=== PATIENT | female | born 1940 | race African-American/Black ===

== ENCOUNTER 2019-03-25 19:06 | Inpatient (IN) | payer MEDICARE ==
[~2019-03-25] VITALS: Ht 162.6 cm; Wt 68.9 kg
[~2019-03-25 19:06] MED LIST: CLON0.2T PO; HYDR25TA MT; LISI-604 PO; METO25TA6 PO; NAPR-677 PO
[2019-03-25] MEDS ORDERED: SODIUM CHLORIDE 0.9% 1,000 ML IV ONE (21:28)
[2019-03-25 21:59] LABS: HEMATOCRIT. 46.2 % (36.0-48.0); HEMOGLOBIN. 15.4 g/dL (12.0-16.0); MEAN CORPUSCULAR VOLUME 89.9 fL (81.0-99.0); MEAN PLATELET VOLUME 7.4 fl (7.4-10.4); PLATELET 369 x1000/uL (130-400); RED BLOOD CELL COUNT 5.14 mill/uL (4.2-5.4); RED CELL DISTRIBUTION WIDTH 14.3 % (11.6-14.6)
[2019-03-25 22:05] LABS: CHLORIDE 107 mEq/L (98-107); PROTHROMBIN TIME 10.2 sec (9.6-11.0)
[2019-03-25 22:09] LABS: ETHANOL BLOOD < 10 mg/dL
[2019-03-25 22:25] LABS: PLATELET ESTIMATE NORMAL
[2019-03-25 22:36] LABS: CLARITY URINE CLOUDY (CLEAR); COLOR URINE YELLOW (YELLOW); KETONES URINE 3+ (NEGATIVE); LEUKOCYTE ESTERASE URINE NEGATIVE (NEGATIVE); NITRITE URINE NEGATIVE (NEGATIVE); OCCULT BLOOD URINE NEGATIVE (NEGATIVE); PROTEIN URINE TRACE (NEGATIVE); SPECIFIC GRAVITY URINE 1.029 (1.005-1.030); UROBILINOGEN URINE 0.2 E.U./dL (0.2-1.0)
[2019-03-25 22:52] LABS: *AMPHETAMINES SCREEN URINE NEGATIVE (NEGATIVE); *BARBITURATES SCREEN URINE NEGATIVE (NEGATIVE); *BENZODIAZEPINES SCREEN URINE NEGATIVE (NEGATIVE); *COCAINE SCREEN URINE NEGATIVE (NEGATIVE); METHADONE URINE SCREEN NEGATIVE (NEGATIVE)
[2019-03-25 22:53] LABS: CANNABINOID URINE SCREEN NEGATIVE (NEGATIVE); OPIATES URINE SCREEN NEGATIVE (NEGATIVE); PHENCYCLIDINE URINE SCREEN NEGATIVE (NEGATIVE)
[2019-03-25] MEDS ORDERED: SODIUM CHLORIDE 0.9% 1000ML BAG (SEPSIS BOLUS) IV ONE (23:00)
[2019-03-25] MEDS ORDERED: PIPERACILLIN/TAZ 3.375G PREMIX 50 ML IV ONE (23:00)
[2019-03-26] VITALS (15 sets, daily range): BP systolic 140–180; BP diastolic 75–102
[2019-03-26 00:05] LABS: BG BASE EXCESS -7.8 mmol/L (-2.0-2.0); BG CARBOXYHEMOGLOBIN 0.3 % (0.5-1.5); BG DEOXYHEMOGLOBIN 2.9 % (0.0-5.0); BG FRACTION INSPIRED OXYGEN 21; BG METHEMOGLOBIN 0.2 % (0.0-1.5); BG OXYGEN SATURATION 97.1 % (92.0-98.5); BG OXYHEMOGLOBIN 96.6 % (94.0-97.0); BG PCO2 28.7 mmHg (35.0-45.0); BG PH 7.364 (7.350-7.450); BG PO2 92.1 mmHg (75.0-100.0); BG SAMPLE SITE RIGHT BRACHIAL; BG TOTAL HEMOGLOBIN 14.7 g/dL (12.0-18.0); BG VENT MODE ROOM AIR
[2019-03-26] MEDS ORDERED: SODIUM CHLORIDE 0.45% 1,000 ML IV SCH (07:30)
[2019-03-26] MEDS ORDERED: DEXTROSE 50% WATER 50ML SYRINGE IV PRN (07:30)
[2019-03-26] MEDS: INSULIN LISPRO 100 UNITS/ML SUBCUT SCH ×4 (09:01→21:17)
[2019-03-26] MEDS: METOPROLOL TARTRATE 25MG TABLET PO SCH ×2 (09:03→20:49)
[2019-03-26] MEDS: ENOXAPARIN 40MG/0.4ML SYR SUBCUT SCH (09:04)
[2019-03-26] MEDS: CEFTRIAXONE 1 G PREMIX 50 ML IV SCH (10:24)
[2019-03-26] MEDS ORDERED: BLOOD SUGAR DIAGNOSTIC STRIP TEST SCH ×2 (11:50→16:00)
[2019-03-26] MEDS ORDERED: INSULIN GLARGINE UD 100 UNITS/ML SYR SUBCUT NR (12:00)
[2019-03-26 13:21] LABS: HEMATOCRIT 43.8 % (36.0-48.0); HEMOGLOBIN 14.4 g/dL (12.0-16.0); MEAN CORPUSCULAR HEMOGLOBIN 29.5 pg (28.0-32.0); MEAN CORPUSCULAR VOLUME 89.6 fL (81.0-99.0); PLATELET 360 x1000/uL (130-400); RED BLOOD CELL COUNT 4.89 mill/uL (4.2-5.4); RED CELL DISTRIBUTION WIDTH 14.8 % (11.6-14.6)
[2019-03-26 14:30] LABS: CHLORIDE 117 mEq/L (98-107)
[2019-03-26] MEDS ORDERED: DILTIAZEM HCL 5MG/ML 5ML VIAL IV NR (15:00)
[2019-03-26] MEDS ORDERED: ONDANSETRON HCL 4MG/2ML INJ IV PRN (15:15)
[2019-03-26] MEDS ORDERED: SIMETHICONE 80MG TABLET CHEW PO PRN (15:15)
[2019-03-26] MEDS ORDERED: DOCUSATE SODIUM 100MG CAPSULE PO PRN (15:15)
[2019-03-26] MEDS: DEXTROSE 5% WATER 1,000 ML IV SCH (15:48)
[2019-03-26] MEDS ORDERED: DILTIAZEM HCL 5MG/ML 5ML VIAL IV ONE (16:09)
[2019-03-26 16:51] LABS: BG BASE EXCESS -4.8 mmol/L (-2.0-2.0); BG CARBOXYHEMOGLOBIN 0.8 % (0.5-1.5); BG DEOXYHEMOGLOBIN 4.3 % (0.0-5.0); BG FRACTION INSPIRED OXYGEN 21; BG HCO3 ACT 18.7 mmol/L (22.0-26.0); BG METHEMOGLOBIN 0.2 % (0.0-1.5); BG OXYGEN SATURATION 95.7 % (92.0-98.5); BG OXYHEMOGLOBIN 94.7 % (94.0-97.0); BG PH 7.399 (7.350-7.450); BG PO2 78.4 mmHg (75.0-100.0); BG SAMPLE SITE RIGHT RADIAL; BG TOTAL HEMOGLOBIN 14.8 g/dL (12.0-18.0); BG VENT MODE ROOM AIR
[2019-03-26 17:08] LABS: PHOSPHORUS 2.2 mg/dL (2.5-4.9)
[2019-03-26] MEDS: HYDRALAZINE 20MG/ML VIAL IV PRN (18:25)
[2019-03-26 20:20] LABS: CHLORIDE 114 mEq/L (98-107)
[2019-03-26] MEDS: BLOOD SUGAR DIAGNOSTIC STRIP TEST SCH (20:48)
[2019-03-26] MEDS: ATORVASTATIN CALCIUM 10MG TABLET PO SCH (20:48)
[2019-03-26] MEDS: FAMOTIDINE 20MG TABLET PO SCH (20:49)
[2019-03-26] MEDS ORDERED: LACTULOSE 20G/30ML UDC PO PRN (21:00)
[2019-03-26] MEDS: DILTIAZEM HCL 5MG/ML 5ML VIAL IV PRN (22:07)
[2019-03-27] VITALS (17 sets, daily range): BP systolic 111–188; BP diastolic 61–104
[2019-03-27] MEDS: DEXTROSE 5% WATER 1,000 ML IV SCH ×3 (00:23→15:00)
[2019-03-27] MEDS: BLOOD SUGAR DIAGNOSTIC STRIP TEST SCH ×6 (00:26→20:16)
[2019-03-27] MEDS: INSULIN LISPRO 100 UNITS/ML SUBCUT SCH ×6 (00:32→20:43)
[2019-03-27] MEDS: HYDRALAZINE 20MG/ML VIAL IV PRN ×2 (05:22→22:25)
[2019-03-27 05:57] LABS: HEMATOCRIT. 43.2 % (36.0-48.0); HEMOGLOBIN. 14.5 g/dL (12.0-16.0); MEAN CORPUSCULAR VOLUME 89.5 fL (81.0-99.0); MEAN PLATELET VOLUME 7.6 fl (7.4-10.4); PLATELET 321 x1000/uL (130-400); RED BLOOD CELL COUNT 4.82 mill/uL (4.2-5.4); RED CELL DISTRIBUTION WIDTH 14.8 % (11.6-14.6)
[2019-03-27] MEDS: METOPROLOL TARTRATE 25MG TABLET PO SCH (09:00)
[2019-03-27] MEDS: ENOXAPARIN 40MG/0.4ML SYR SUBCUT SCH (09:11)
[2019-03-27] MEDS ORDERED: INSULIN GLARGINE UD 100 UNITS/ML SYR SUBCUT SCH ×2 (10:00→22:00)
[2019-03-27] MEDS: CEFTRIAXONE 1 G PREMIX 50 ML IV SCH (10:36)
[2019-03-27] MEDS ORDERED: INSULIN LISPRO 100 UNITS/ML SUBCUT NR (11:15)
[2019-03-27 11:21] LABS: PLATELET ESTIMATE NORMAL
[2019-03-27 13:37] LABS: CHLORIDE 109 mEq/L (98-107)
[2019-03-27] MEDS: DILTIAZEM HCL 5MG/ML 5ML VIAL IV PRN (16:24)
[2019-03-27] MEDS ORDERED: POTASSIUM CHLORIDE INJ 40 MEQ in DEXT 5% WATER 250 ML IV NR (16:30)
[2019-03-27 19:51] LABS: BG BASE EXCESS -1.5 mmol/L (-2.0-2.0); BG CARBOXYHEMOGLOBIN 0.9 % (0.5-1.5); BG DEOXYHEMOGLOBIN 5.1 % (0.0-5.0); BG FRACTION INSPIRED OXYGEN 21; BG HCO3 ACT 21.9 mmol/L (22.0-26.0); BG METHEMOGLOBIN 0.3 % (0.0-1.5); BG OXYGEN SATURATION 94.8 % (92.0-98.5); BG OXYHEMOGLOBIN 93.7 % (94.0-97.0); BG PCO2 33.3 mmHg (35.0-45.0); BG PH 7.435 (7.350-7.450); BG PO2 72.7 mmHg (75.0-100.0); BG SAMPLE SITE RIGHT BRACHIAL; BG TOTAL HEMOGLOBIN 15.4 g/dL (12.0-18.0); BG VENT MODE ROOM AIR
[2019-03-27] MEDS: ATORVASTATIN CALCIUM 10MG TABLET PO SCH (20:25)
[2019-03-27] MEDS: METOPROLOL TARTRATE 50MG TABLET PO SCH (20:26)
[2019-03-27] MEDS: FAMOTIDINE 20MG TABLET PO SCH (20:26)
[2019-03-28] VITALS (18 sets, daily range): BP systolic 130–180; BP diastolic 62–124
[2019-03-28] MEDS: BLOOD SUGAR DIAGNOSTIC STRIP TEST SCH ×7 (00:57→23:31)
[2019-03-28] MEDS: INSULIN LISPRO 100 UNITS/ML SUBCUT SCH ×7 (01:00→23:31)
[2019-03-28] MEDS: HYDRALAZINE 20MG/ML VIAL IV PRN ×2 (04:49→18:05)
[2019-03-28 06:06] LABS: HEMATOCRIT. 43.7 % (36.0-48.0); HEMOGLOBIN. 14.7 g/dL (12.0-16.0); MEAN CORPUSCULAR HEMOGLOBIN 29.9 pg (28.0-32.0); MEAN CORPUSCULAR VOLUME 88.9 fL (81.0-99.0); MEAN PLATELET VOLUME 7.9 fl (7.4-10.4); PLATELET 307 x1000/uL (130-400); RED BLOOD CELL COUNT 4.91 mill/uL (4.2-5.4); RED CELL DISTRIBUTION WIDTH 14.5 % (11.6-14.6)
[2019-03-28 06:19] LABS: CHLORIDE 108 mEq/L (98-107)
[2019-03-28] MEDS: DEXTROSE 5% WATER 1,000 ML IV SCH (07:22)
[2019-03-28 07:48] LABS: CLARITY URINE CLOUDY (CLEAR); COLOR URINE YELLOW (YELLOW); KETONES URINE TRACE (NEGATIVE); LEUKOCYTE ESTERASE URINE NEGATIVE (NEGATIVE); NITRITE URINE NEGATIVE (NEGATIVE); OCCULT BLOOD URINE TRACE (NEGATIVE); PROTEIN URINE TRACE (NEGATIVE); SPECIFIC GRAVITY URINE 1.024 (1.005-1.030); UROBILINOGEN URINE 0.2 E.U./dL (0.2-1.0)
[2019-03-28] MEDS: ENOXAPARIN 40MG/0.4ML SYR SUBCUT SCH (09:00)
[2019-03-28] MEDS: METOPROLOL TARTRATE 50MG TABLET PO SCH ×2 (09:00→20:51)
[2019-03-28] MEDS: CEFTRIAXONE 1 G PREMIX 50 ML IV SCH (10:13)
[2019-03-28] MEDS: DILTIAZEM HCL 5MG/ML 5ML VIAL IV PRN (10:54)
[2019-03-28] MEDS: DILTIAZEM HCL 30MG TABLET PO SCH ×3 (12:00→23:14)
[2019-03-28] MEDS ORDERED: INSULIN GLARGINE UD 100 UNITS/ML SYR SUBCUT NR (12:30)
[2019-03-28 13:25] LABS: PLATELET ESTIMATE NORMAL
[2019-03-28] MEDS ORDERED: LIDOCAINE HCL 1% 20ML VIAL (Pyxis) INJ ONE (13:50)
[2019-03-28] MEDS ORDERED: SODIUM BICARBONATE 4% (2.4MEQ) 5ML VIAL IV ONE (13:50)
[2019-03-28] MEDS: SODIUM CHLORIDE 0.45% 1,000 ML IV SCH (14:15)
[2019-03-28] MEDS: HYDROCODONE/ACETAMINOPHEN 5/325MG TABLET PO PRN (20:37)
[2019-03-28] MEDS: DIPHENHYDRAMINE 50MG/ML VIAL IV PRN (20:50)
[2019-03-28] MEDS: ATORVASTATIN CALCIUM 10MG TABLET PO SCH (20:50)
[2019-03-28] MEDS: FAMOTIDINE 20MG TABLET PO SCH (20:51)
[2019-03-28] MEDS: INSULIN GLARGINE UD 100 UNITS/ML SYR SUBCUT SCH (21:08)
[2019-03-29] VITALS (12 sets, daily range): BP systolic 140–181; BP diastolic 78–118
[2019-03-29] MEDS: BLOOD SUGAR DIAGNOSTIC STRIP TEST SCH ×6 (04:00→23:01)
[2019-03-29] MEDS: SODIUM CHLORIDE 0.45% 1,000 ML IV SCH ×2 (04:09→11:27)
[2019-03-29] MEDS: INSULIN LISPRO 100 UNITS/ML SUBCUT SCH ×6 (04:10→23:01)
[2019-03-29] MEDS: DILTIAZEM HCL 30MG TABLET PO SCH ×4 (05:15→23:01)
[2019-03-29 06:31] LABS: BASOPHILS % 0.2 % (0.0-2.0); EOSINOPHILS % 0.2 % (0.0-5.0); HEMATOCRIT. 45.9 % (36.0-48.0); HEMOGLOBIN. 15.3 g/dL (12.0-16.0); LYMPHOCYTES % 8.9 % (20.0-50.0); MEAN CORPUSCULAR HEMOGLOBIN 29.7 pg (28.0-32.0); MEAN CORPUSCULAR VOLUME 88.9 fL (81.0-99.0); MEAN PLATELET VOLUME 8.6 fl (7.4-10.4); MONOCYTES % 6.3 % (2.0-8.0); NEUTROPHILS % 84.4 % (40.0-76.0); PLATELET 277 x1000/uL (130-400); RED BLOOD CELL COUNT 5.16 mill/uL (4.2-5.4); RED CELL DISTRIBUTION WIDTH 14.6 % (11.6-14.6)
[2019-03-29 07:50] LABS: CHLORIDE 105 mEq/L (98-107)
[2019-03-29] MEDS: CEFTRIAXONE 1 G PREMIX 50 ML IV SCH (09:33)
[2019-03-29] MEDS: METOPROLOL TARTRATE 50MG TABLET PO SCH ×2 (09:34→20:16)
[2019-03-29] MEDS: INSULIN GLARGINE UD 100 UNITS/ML SYR SUBCUT SCH ×2 (09:35→22:00)
[2019-03-29 10:06] LABS: A/G RATIO 0.9 (0.7-1.7); ALBUMIN 3.2 g/dL (2.9-4.4); ALPHA-1-GLOBULIN 0.3 g/dL (0.0-0.4); ALPHA-2-GLOBULIN 0.9 g/dL (0.4-1.0); BETA GLOBULIN 1.3 g/dL (0.7-1.3); GAMMA GLOBULINS 0.9 g/dL (0.4-1.8); GLOBULIN TOTAL 3.4 g/dL (2.2-3.9); M-SPIKE Not Observed g/dL (Not Observed); TOTAL PROTEIN SERUM 6.6 g/dL (6.0-8.5)
[2019-03-29] MEDS ORDERED: PAMIDRONATE DISODIUM 30 MG in SODIUM CHLORIDE 0.9% 500 ML IV SCH (11:00)
[2019-03-29 13:11] LABS: ALBUMIN URINE 43.6 % (.); ALPHA-1-GLOBULIN URINE 3.7 % (.); ALPHA-2-GLOBULIN URINE 13.5 % (.); BETA GLOBULIN URINE 15.9 % (.); GAMMA GLOBULIN URINE 23.3 % (.); TOTAL PROTEIN RANDOM URINE 25.3 mg/dL (Not Estab.)
[2019-03-29] MEDS: FAMOTIDINE 20MG TABLET PO SCH (20:15)
[2019-03-29] MEDS: ATORVASTATIN CALCIUM 10MG TABLET PO SCH (20:15)
[2019-03-29] MEDS: DIPHENHYDRAMINE 50MG/ML VIAL IV PRN (22:29)
[2019-03-30] VITALS (11 sets, daily range): BP systolic 106–173; BP diastolic 36–104
[2019-03-30] MEDS: SODIUM CHLORIDE 0.45% 1,000 ML IV SCH ×4 (01:49→20:40)
[2019-03-30] MEDS: CLONIDINE 0.1MG TABLET PO PRN ×2 (01:57→01:59)
[2019-03-30] MEDS: ACETAMINOPHEN 325MG TABLET PO PRN (01:57)
[2019-03-30] MEDS: INSULIN LISPRO 100 UNITS/ML SUBCUT SCH ×5 (04:00→20:00)
[2019-03-30] MEDS: BLOOD SUGAR DIAGNOSTIC STRIP TEST SCH ×5 (04:51→20:00)
[2019-03-30] MEDS: DIPHENHYDRAMINE 50MG/ML VIAL IV PRN ×2 (05:17→20:39)
[2019-03-30] MEDS: DILTIAZEM HCL 30MG TABLET PO SCH ×4 (05:50→23:02)
[2019-03-30 07:19] LABS: HEMATOCRIT 40.8 % (36.0-48.0); HEMOGLOBIN 13.8 g/dL (12.0-16.0); MEAN CORPUSCULAR VOLUME 88.9 fL (81.0-99.0); PLATELET 250 x1000/uL (130-400); RED CELL DISTRIBUTION WIDTH 14.2 % (11.6-14.6)
[2019-03-30 07:27] LABS: CHLORIDE 106 mEq/L (98-107)
[2019-03-30] MEDS: METOPROLOL TARTRATE 50MG TABLET PO SCH ×2 (08:37→20:40)
[2019-03-30] MEDS: ENOXAPARIN 40MG/0.4ML SYR SUBCUT SCH (10:07)
[2019-03-30] MEDS: INSULIN GLARGINE UD 100 UNITS/ML SYR SUBCUT SCH ×2 (10:07→21:28)
[2019-03-30] MEDS: CEFTRIAXONE 1 G PREMIX 50 ML IV SCH (10:07)
[2019-03-30 18:38] LABS: T4 FREE 1.15 ng/dL (0.76-1.46)
[2019-03-30 19:08] LABS: FOLIC ACID (FOLATE) SERUM 19.5 ng/mL (>5.38)
[2019-03-30] MEDS: ATORVASTATIN CALCIUM 10MG TABLET PO SCH (20:39)
[2019-03-30] MEDS: FAMOTIDINE 20MG TABLET PO SCH (20:40)
[2019-03-30] MEDS: HYDROCODONE/ACETAMINOPHEN 5/325MG TABLET PO PRN (22:32)
[2019-03-31] VITALS (12 sets, daily range): BP systolic 121–173; BP diastolic 77–126
[2019-03-31] MEDS: BLOOD SUGAR DIAGNOSTIC STRIP TEST SCH ×6 (04:00→20:00)
[2019-03-31] MEDS: INSULIN LISPRO 100 UNITS/ML SUBCUT SCH ×6 (04:00→20:00)
[2019-03-31] MEDS: DILTIAZEM HCL 30MG TABLET PO SCH ×3 (05:46→17:35)
[2019-03-31 07:18] LABS: HEMATOCRIT 40.7 % (36.0-48.0); HEMOGLOBIN 13.8 g/dL (12.0-16.0); MEAN CORPUSCULAR VOLUME 88.9 fL (81.0-99.0); PLATELET 269 x1000/uL (130-400); RED BLOOD CELL COUNT 4.58 mill/uL (4.2-5.4)
[2019-03-31 07:30] LABS: CHLORIDE 105 mEq/L (98-107)
[2019-03-31] MEDS: ZINC SULFATE 220 MG ( 50 ) CAPSULE NG SCH (08:50)
[2019-03-31] MEDS: ASCORBIC ACID 250 MG TABLET NG SCH (08:51)
[2019-03-31] MEDS: METOPROLOL TARTRATE 50MG TABLET PO SCH ×2 (08:51→21:23)
[2019-03-31] MEDS: ENOXAPARIN 40MG/0.4ML SYR SUBCUT SCH (08:52)
[2019-03-31] MEDS: DIPHENHYDRAMINE 50MG/ML VIAL IV PRN (08:53)
[2019-03-31] MEDS: CEFTRIAXONE 1 G PREMIX 50 ML IV SCH (09:49)
[2019-03-31] MEDS: INSULIN GLARGINE UD 100 UNITS/ML SYR SUBCUT SCH ×2 (09:52→22:02)
[2019-03-31] MEDS ORDERED: POTASSIUM CHLORIDE 20MEQ TABLET SR PO SCH (11:30)
[2019-03-31] MEDS: AMLODIPINE 5MG TABLET PO SCH (12:00)
[2019-03-31] MEDS ORDERED: POLYETHYLENE GLYCOL 3350 (17GM) 1 DOSE PACK PO PRN (15:00)
[2019-03-31] MEDS: ACETAMINOPHEN 325MG TABLET PO PRN (16:48)
[2019-03-31] MEDS: FAMOTIDINE 20MG TABLET PO SCH (21:23)
[2019-03-31] MEDS: ATORVASTATIN CALCIUM 10MG TABLET PO SCH (21:23)
[2019-03-31] MEDS: SODIUM CHLORIDE 0.45% 1,000 ML IV SCH ×2 (22:29→22:30)
[2019-04-01] VITALS (21 sets, daily range): BP systolic 108–169; BP diastolic 62–86
[2019-04-01] MEDS: DILTIAZEM HCL 30MG TABLET PO SCH ×5 (00:54→23:26)
[2019-04-01] MEDS: BLOOD SUGAR DIAGNOSTIC STRIP TEST SCH ×5 (04:00→21:28)
[2019-04-01] MEDS: HYDRALAZINE 20MG/ML VIAL IV PRN (04:15)
[2019-04-01] MEDS: INSULIN LISPRO 100 UNITS/ML SUBCUT SCH ×4 (04:24→21:28)
[2019-04-01] MEDS: SODIUM CHLORIDE 0.45% 1,000 ML IV SCH ×2 (07:08→19:18)
[2019-04-01 07:16] LABS: BASOPHILS % 0.2 % (0.0-2.0); EOSINOPHILS % 0.4 % (0.0-5.0); HEMATOCRIT. 39.6 % (36.0-48.0); HEMOGLOBIN. 13.2 g/dL (12.0-16.0); LYMPHOCYTES % 7.6 % (20.0-50.0); MEAN CORPUSCULAR HEMOGLOBIN 29.7 pg (28.0-32.0); MEAN CORPUSCULAR VOLUME 89.2 fL (81.0-99.0); MEAN PLATELET VOLUME 8.8 fl (7.4-10.4); MONOCYTES % 6.2 % (2.0-8.0); NEUTROPHILS % 85.6 % (40.0-76.0); PLATELET 263 x1000/uL (130-400); RED BLOOD CELL COUNT 4.44 mill/uL (4.2-5.4); RED CELL DISTRIBUTION WIDTH 13.9 % (11.6-14.6)
[2019-04-01 07:34] LABS: CHLORIDE 106 mEq/L (98-107)
[2019-04-01] MEDS: ENOXAPARIN 40MG/0.4ML SYR SUBCUT SCH (11:22)
[2019-04-01] MEDS: CEFTRIAXONE 1 G PREMIX 50 ML IV SCH (11:22)
[2019-04-01] MEDS: AMLODIPINE 5MG TABLET PO SCH (11:23)
[2019-04-01] MEDS: ASCORBIC ACID 250 MG TABLET NG SCH (11:23)
[2019-04-01] MEDS: METOPROLOL TARTRATE 50MG TABLET PO SCH ×2 (11:24→20:32)
[2019-04-01] MEDS: INSULIN GLARGINE UD 100 UNITS/ML SYR SUBCUT SCH (12:04)
[2019-04-01] MEDS: ZINC SULFATE 220 MG ( 50 ) CAPSULE NG SCH (12:04)
[2019-04-01] MEDS: ATORVASTATIN CALCIUM 10MG TABLET PO SCH (20:30)
[2019-04-01] MEDS: DIPHENHYDRAMINE 50MG/ML VIAL IV PRN (20:30)
[2019-04-01] MEDS: FAMOTIDINE 20MG TABLET PO SCH (20:31)
[2019-04-02] VITALS (13 sets, daily range): BP systolic 105–148; BP diastolic 28–84
[2019-04-02] MEDS: INSULIN LISPRO 100 UNITS/ML SUBCUT SCH ×4 (04:00→21:21)
[2019-04-02] MEDS: BLOOD SUGAR DIAGNOSTIC STRIP TEST SCH ×4 (04:00→21:22)
[2019-04-02] MEDS: SODIUM CHLORIDE 0.45% 1,000 ML IV SCH ×2 (04:46→14:15)
[2019-04-02] MEDS: DILTIAZEM HCL 30MG TABLET PO SCH ×4 (05:47→23:34)
[2019-04-02 07:12] LABS: HEMATOCRIT 34.8 % (36.0-48.0); HEMOGLOBIN 11.9 g/dL (12.0-16.0); MEAN CORPUSCULAR HEMOGLOBIN 30.2 pg (28.0-32.0); MEAN CORPUSCULAR VOLUME 88.5 fL (81.0-99.0); PLATELET 304 x1000/uL (130-400); RED BLOOD CELL COUNT 3.94 mill/uL (4.2-5.4); RED CELL DISTRIBUTION WIDTH 13.9 % (11.6-14.6)
[2019-04-02 07:30] LABS: CHLORIDE 105 mEq/L (98-107)
[2019-04-02] MEDS: ASCORBIC ACID 250 MG TABLET NG SCH (09:04)
[2019-04-02] MEDS: ZINC SULFATE 220 MG ( 50 ) CAPSULE NG SCH (09:04)
[2019-04-02] MEDS: METOPROLOL TARTRATE 50MG TABLET PO SCH ×2 (09:05→20:19)
[2019-04-02] MEDS: AMLODIPINE 5MG TABLET PO SCH (09:05)
[2019-04-02] MEDS: ENOXAPARIN 40MG/0.4ML SYR SUBCUT SCH (09:06)
[2019-04-02] MEDS: CEFTRIAXONE 1 G PREMIX 50 ML IV SCH (09:46)
[2019-04-02] MEDS ORDERED: INSULIN GLARGINE UD 100 UNITS/ML SYR SUBCUT SCH (10:00)
[2019-04-02] MEDS ORDERED: POTASSIUM CHLORIDE INJ 40 MEQ in DEXT 5% WATER 230 ML IV NR (12:30)
[2019-04-02] MEDS ORDERED: POTASSIUM CHLORIDE 20MEQ TABLET SR PO NR (18:00)
[2019-04-02] MEDS: ATORVASTATIN CALCIUM 10MG TABLET PO SCH (20:18)
[2019-04-02] MEDS: FAMOTIDINE 20MG TABLET PO SCH (20:18)
[2019-04-02] MEDS: INSULIN GLARGINE UD 100 UNITS/ML SYR SUBCUT SCH (21:36)
[2019-04-03] VITALS: BP 139/73
[2019-04-03 04:00] VITALS: BP 139/86
[2019-04-03] MEDS: BLOOD SUGAR DIAGNOSTIC STRIP TEST SCH ×2 (04:29→10:43)
[2019-04-03] MEDS: INSULIN LISPRO 100 UNITS/ML SUBCUT SCH ×2 (04:45→13:13)
[2019-04-03] MEDS: DILTIAZEM HCL 30MG TABLET PO SCH ×2 (05:04→13:13)
[2019-04-03 08:00] VITALS: BP 126/63
[2019-04-03] MEDS: ZINC SULFATE 220 MG ( 50 ) CAPSULE NG SCH (08:47)
[2019-04-03] MEDS: METOPROLOL TARTRATE 50MG TABLET PO SCH (08:47)
[2019-04-03] MEDS: AMLODIPINE 5MG TABLET PO SCH (08:47)
[2019-04-03] MEDS: ENOXAPARIN 40MG/0.4ML SYR SUBCUT SCH (08:47)
[2019-04-03] MEDS: ASCORBIC ACID 250 MG TABLET NG SCH (08:47)
[2019-04-03] MEDS: INSULIN GLARGINE UD 100 UNITS/ML SYR SUBCUT SCH (11:02)
[2019-04-03 12:00] VITALS: BP 148/83
[2019-04-03 13:38] VITALS: BP 148/83
== END 2019-04-03 14:34 | disposition home health service (06) | DRG 871 ==
LOC: ER 19:06 → 3WST 23:40 → EDBEDREQSVC 23:43 → EDBEDREQ 23:43 → EDBEDREQTM 23:43 → ENRESERV 03-26 03:44 → 3WST 03-26 06:55 → 6WST 04-02 22:15
PROVIDERS: ADMIT Internal Medicine; ATTEND Internal Medicine
PROC: 0GBG3ZX Excision of Left Thyroid Gland Lobe, Percutaneous Approach, Diagnostic (ICD-10-PCS; 2019-03-28)
PROC: 4A00X4Z Measurement of Central Nervous Electrical Activity, External Approach (ICD-10-PCS; principal; 2019-04-02)
DX: A41.9 Sepsis, unspecified organism (principal); E11.10 Type 2 diabetes mellitus with ketoacidosis without coma; G92 Toxic encephalopathy; I50.33 Acute on chronic diastolic (congestive) heart failure; N39.0 Urinary tract infection, site not specified; D68.59 Other primary thrombophilia; E87.2 Acidosis; N17.9 Acute kidney failure, unspecified; E46 Unspecified protein-calorie malnutrition; E86.0 Dehydration; E83.52 Hypercalcemia; E03.9 Hypothyroidism, unspecified; I11.0 Hypertensive heart disease with heart failure; R00.0 Tachycardia, unspecified; E07.9 Disorder of thyroid, unspecified; E21.3 Hyperparathyroidism, unspecified; E04.9 Nontoxic goiter, unspecified; K59.00 Constipation, unspecified; Z79.84 Long term (current) use of oral hypoglycemic drugs; Z79.899 Other long term (current) drug therapy; Z68.26 Body mass index [BMI] 26.0-26.9, adult
CPT/HCPCS: 10005; 36415; 36600; 70551; 71045; 72170; 73552; 74176; 76536; 80048; 80305; 80320; 81003; 82010; 82140; 82306; 82330; 82375; 82607; 82652; 82746; 82805; 82962; 83036; 83605; 83735; 83880; 83970; 84100; 84145; 84155; 84156; 84165; 84166; 84439; 84443; 84481; 84484; 85027; 85379; 88172; 88173; 92610; 93005; 97110; 97163; 97530; 99291; C1893; J0360; J0696; J1200; J1650; J1815; J2405; J2430; J2543; J3480; J3490; J7030; J7040; J7042; J7060; J7070; A4315; G0480

== ENCOUNTER 2019-07-04 08:08 | Inpatient (IN) | payer MEDICARE, MEDICAID ==
[~2019-07-04] VITALS: Ht 160 cm; Wt 64.9 kg
[2019-07-04 08:43] LABS: BASOPHILS % 0.7 % (0.0-2.0); EOSINOPHILS % 2.7 % (0.0-5.0); HEMATOCRIT. 38.7 % (36.0-48.0); HEMOGLOBIN. 13.3 g/dL (12.0-16.0); LYMPHOCYTES % 35.8 % (20.0-50.0); MEAN CORPUSCULAR HEMOGLOBIN 30.5 pg (28.0-32.0); MEAN PLATELET VOLUME 8.1 fl (7.4-10.4); MONOCYTES % 7.1 % (2.0-8.0); NEUTROPHILS % 53.7 % (40.0-76.0); PLATELET 324 x1000/uL (130-400); RED BLOOD CELL COUNT 4.35 mill/uL (4.2-5.4); RED CELL DISTRIBUTION WIDTH 14.4 % (11.6-14.6)
[2019-07-04 08:51] LABS: PROTHROMBIN TIME 10.4 sec (9.6-11.0)
[2019-07-04 08:55] LABS: CHLORIDE 111 mEq/L (98-107)
[2019-07-04 08:58] LABS: ETHANOL BLOOD < 10 mg/dL
[2019-07-04 09:01] LABS: CLARITY URINE TURBID (CLEAR); COLOR URINE DK YELLOW (YELLOW); KETONES URINE TRACE (NEGATIVE); LEUKOCYTE ESTERASE URINE 3+ (NEGATIVE); NITRITE URINE NEGATIVE (NEGATIVE); OCCULT BLOOD URINE 1+ (NEGATIVE); PROTEIN URINE 1+ (NEGATIVE); SPECIFIC GRAVITY URINE 1.027 (1.005-1.030)
[2019-07-04 09:03] LABS: LDL CHOLESTEROL 137 mg/dL (5-100)
[2019-07-04 09:13] LABS: *AMPHETAMINES SCREEN URINE NEGATIVE (NEGATIVE); *BARBITURATES SCREEN URINE NEGATIVE (NEGATIVE)
[2019-07-04 09:14] LABS: *BENZODIAZEPINES SCREEN URINE NEGATIVE (NEGATIVE); *COCAINE SCREEN URINE NEGATIVE (NEGATIVE); METHADONE URINE SCREEN NEGATIVE (NEGATIVE); OPIATES URINE SCREEN NEGATIVE (NEGATIVE)
[2019-07-04 09:15] LABS: CANNABINOID URINE SCREEN NEGATIVE (NEGATIVE); PHENCYCLIDINE URINE SCREEN NEGATIVE (NEGATIVE)
[2019-07-04] MEDS ORDERED: CEFTRIAXONE 1 G PREMIX 50 ML IV ONE (10:15)
[2019-07-04] MEDS ORDERED: SODIUM CHLORIDE 0.9% 1000ML BAG (SEPSIS BOLUS) IV ONE (10:45)
[2019-07-04] MEDS: SODIUM CHLORIDE 0.45% 1,000 ML IV SCH (12:15)
[2019-07-04] MEDS ORDERED: DIPHENHYDRAMINE 50MG/ML VIAL IV PRN (12:15)
[2019-07-04] MEDS ORDERED: HYDROCODONE/ACETAMINOPHEN 5/325MG TABLET PO PRN (12:15)
[2019-07-04] MEDS ORDERED: ACETAMINOPHEN 325MG TABLET PO PRN (12:15)
[2019-07-04] MEDS ORDERED: MAGNESIUM/ALUMINUM HYDROXIDE/SIMETHICONE 30ML UDC PO PRN (12:15)
[2019-07-04] MEDS ORDERED: LEVOFLOXACIN 500MG PREMIX 100 ML IV SCH ×2 (12:15→12:30)
[2019-07-04] MEDS ORDERED: GUAIFENESIN 200MG/10ML SUGAR FREE UDC PO PRN (12:15)
[2019-07-04] MEDS ORDERED: ACETAMINOPHEN 650MG SUPP PR PRN (12:15)
[2019-07-04] MEDS ORDERED: LORAZEPAM 0.5MG TABLET PO PRN (12:15)
[2019-07-04] MEDS ORDERED: IPRATROPIUM/ALBUTEROL 0.5-3(2.5)MG/3ML NEB NEB PRN (12:15)
[2019-07-04] MEDS ORDERED: DOCUSATE SODIUM 100MG CAPSULE PO PRN (12:15)
[2019-07-04] MEDS ORDERED: ONDANSETRON HCL 4MG/2ML INJ IV PRN (12:15)
[2019-07-04] MEDS: BLOOD SUGAR DIAGNOSTIC STRIP TEST SCH ×2 (13:00→17:20)
[2019-07-04] MEDS: INSULIN LISPRO 100 UNITS/ML SUBCUT SCH ×2 (13:20→18:20)
[2019-07-04] MEDS ORDERED: DILTIAZEM HCL 30MG TABLET PO SCH (18:00)
[2019-07-04] MEDS ORDERED: NA PHOS,M-B/NA PHOS,DI-BA ENEMA 118ML PR PRN (21:00)
[2019-07-04] MEDS: CLONIDINE 0.1MG TABLET PO PRN (22:20)
[2019-07-05] VITALS (7 sets, daily range): BP systolic 137–159; BP diastolic 83–97
[2019-07-05 00:13] LABS: CREATINE KINASE 42 IU/L (26-192)
[2019-07-05] MEDS ORDERED: DEXTROSE 50% WATER 50ML SYRINGE IV PRN (00:52)
[2019-07-05] MEDS ORDERED: ATOR10TA69 MT (01:43)
[2019-07-05] MEDS ORDERED: AMLO5TAB88 MT (01:43)
[2019-07-05] MEDS ORDERED: LEVO50TA8 MT (01:43)
[2019-07-05] MEDS ORDERED: DILT30TA3 MT (01:43)
[2019-07-05] MEDS ORDERED: INSU100C6 SQ (01:43)
[2019-07-05] MEDS ORDERED: INSU100I28 SQ (01:43)
[2019-07-05] MEDS: SODIUM CHLORIDE 0.45% 1,000 ML IV SCH ×2 (03:13→08:36)
[2019-07-05] MEDS ORDERED: INFLUENZA VIRUS VACCINE(AFLURIA) 0.5ML SYR IM ONE (06:00)
[2019-07-05] MEDS: DILTIAZEM HCL 30MG TABLET PO SCH ×3 (06:00→18:00)
[2019-07-05] MEDS: BLOOD SUGAR DIAGNOSTIC STRIP TEST SCH ×4 (06:20→21:00)
[2019-07-05] MEDS: INSULIN LISPRO 100 UNITS/ML SUBCUT SCH ×4 (06:22→21:00)
[2019-07-05 06:58] LABS: BASOPHILS % 0.5 % (0.0-2.0); EOSINOPHILS % 1.7 % (0.0-5.0); HEMATOCRIT. 35.4 % (36.0-48.0); LYMPHOCYTES % 13.8 % (20.0-50.0); MEAN CORPUSCULAR HEMOGLOBIN 29.8 pg (28.0-32.0); MEAN CORPUSCULAR VOLUME 87.8 fL (81.0-99.0); MEAN PLATELET VOLUME 8.2 fl (7.4-10.4); MONOCYTES % 5.1 % (2.0-8.0); NEUTROPHILS % 78.9 % (40.0-76.0); PLATELET 288 x1000/uL (130-400); RED BLOOD CELL COUNT 4.03 mill/uL (4.2-5.4); RED CELL DISTRIBUTION WIDTH 14.3 % (11.6-14.6)
[2019-07-05 07:11] LABS: CHLORIDE 112 mEq/L (98-107)
[2019-07-05 07:18] LABS: LDL CHOLESTEROL 125 mg/dL (5-100)
[2019-07-05 07:20] LABS: HDL CHOLESTEROL 48 mg/dL (40-59); T4 FREE 1.05 ng/dL (0.76-1.46)
[2019-07-05] MEDS: ENOXAPARIN 40MG/0.4ML SYR SUBCUT SCH (08:36)
[2019-07-05 08:51] LABS: BG BASE EXCESS -0.9 mmol/L (-2.0-2.0); BG CARBOXYHEMOGLOBIN 0.1 % (0.5-1.5); BG DEOXYHEMOGLOBIN 4.3 % (0.0-5.0); BG FRACTION INSPIRED OXYGEN 21; BG HCO3 ACT 22.1 mmol/L (22.0-26.0); BG METHEMOGLOBIN 0.3 % (0.0-1.5); BG OXYGEN SATURATION 95.7 % (92.0-98.5); BG OXYHEMOGLOBIN 95.3 % (94.0-97.0); BG PCO2 31.7 mmHg (35.0-45.0); BG PH 7.462 (7.350-7.450); BG PO2 80.4 mmHg (75.0-100.0); BG SAMPLE SITE RIGHT RADIAL; BG VENT MODE ROOM AIR
[2019-07-05] MEDS: LEVOFLOXACIN 250MG PREMIX 50 ML IV SCH (12:59)
[2019-07-05] MEDS: ASPIRIN 81MG TABLET PO SCH (17:00)
[2019-07-05] MEDS: ATORVASTATIN CALCIUM 10MG TABLET PO SCH (21:00)
[2019-07-06] VITALS: BP 155/94
[2019-07-06 04:00] VITALS: BP 162/85
[2019-07-06] MEDS: SODIUM CHLORIDE 0.45% 1,000 ML IV SCH (04:11)
[2019-07-06] MEDS: DILTIAZEM HCL 30MG TABLET PO SCH ×5 (05:18→19:02)
[2019-07-06] MEDS: BLOOD SUGAR DIAGNOSTIC STRIP TEST SCH ×4 (05:33→21:03)
[2019-07-06] MEDS: INSULIN LISPRO 100 UNITS/ML SUBCUT SCH ×4 (05:33→21:00)
[2019-07-06] MEDS: ASPIRIN 81MG TABLET PO SCH ×3 (09:00→09:30)
[2019-07-06] MEDS: CLONIDINE 0.1MG TABLET PO PRN (09:26)
[2019-07-06] MEDS: ENOXAPARIN 40MG/0.4ML SYR SUBCUT SCH (09:29)
[2019-07-06 12:19] VITALS: BP 161/97
[2019-07-06] MEDS: DILTIAZEM HCL 5MG/ML 5ML VIAL IV PRN ×2 (12:27→12:46)
[2019-07-06] MEDS: LEVOFLOXACIN 250MG PREMIX 50 ML IV SCH (12:42)
[2019-07-06 16:00] VITALS: BP 165/94
[2019-07-06 20:00] VITALS: BP 168/95
[2019-07-06] MEDS ORDERED: DILTIAZEM HCL 5MG/ML 5ML VIAL IV NR (20:00)
[2019-07-06] MEDS ORDERED: DEXT 5%/0.45% NACL 1000ML 1,000 ML IV ONE (20:45)
[2019-07-06] MEDS: ATORVASTATIN CALCIUM 10MG TABLET PO SCH (21:06)
[2019-07-07] VITALS (7 sets, daily range): BP systolic 140–177; BP diastolic 72–96
[2019-07-07] MEDS: DILTIAZEM HCL 30MG TABLET PO SCH ×6 (00:05→19:22)
[2019-07-07] MEDS: SODIUM CHLORIDE 0.45% 1,000 ML IV SCH ×2 (01:22→21:39)
[2019-07-07] MEDS: HYDRALAZINE 20MG/ML VIAL IV PRN ×2 (04:29→21:40)
[2019-07-07] MEDS: BLOOD SUGAR DIAGNOSTIC STRIP TEST SCH ×4 (06:09→20:22)
[2019-07-07] MEDS: INSULIN LISPRO 100 UNITS/ML SUBCUT SCH ×4 (06:09→20:22)
[2019-07-07] MEDS: ENOXAPARIN 40MG/0.4ML SYR SUBCUT SCH (10:01)
[2019-07-07] MEDS: LEVOFLOXACIN 250MG PREMIX 50 ML IV SCH (13:20)
[2019-07-07 16:41] LABS: HEMATOCRIT 36.4 % (36.0-48.0); HEMOGLOBIN 12.5 g/dL (12.0-16.0); MEAN CORPUSCULAR HEMOGLOBIN 30.1 pg (28.0-32.0); MEAN CORPUSCULAR VOLUME 87.5 fL (81.0-99.0); PLATELET 233 x1000/uL (130-400); RED BLOOD CELL COUNT 4.16 mill/uL (4.2-5.4); RED CELL DISTRIBUTION WIDTH 14.2 % (11.6-14.6)
[2019-07-07 16:42] LABS: CHLORIDE 108 mEq/L (98-107)
[2019-07-07 17:14] LABS: VITAMIN B12 SERUM 770 pg/mL (211-911)
[2019-07-07] MEDS: ATORVASTATIN CALCIUM 10MG TABLET PO SCH ×2 (21:00→21:39)
[2019-07-08] VITALS (56 sets, daily range): BP systolic 82–193; BP diastolic 38–141
[2019-07-08] MEDS: DILTIAZEM HCL 30MG TABLET PO SCH ×4 (00:10→18:22)
[2019-07-08] MEDS ORDERED: LORAZEPAM 2MG/ML CPJ IV SCH (01:00)
[2019-07-08] MEDS: DILTIAZEM HCL 5MG/ML 5ML VIAL IV PRN (01:41)
[2019-07-08] MEDS: CLONIDINE 0.1MG TABLET PO PRN (02:32)
[2019-07-08] MEDS: HYDRALAZINE 20MG/ML VIAL IV PRN (03:56)
[2019-07-08] MEDS: INSULIN LISPRO 100 UNITS/ML SUBCUT SCH ×4 (06:07→20:38)
[2019-07-08] MEDS: BLOOD SUGAR DIAGNOSTIC STRIP TEST SCH ×4 (06:07→19:53)
[2019-07-08] MEDS: ENOXAPARIN 40MG/0.4ML SYR SUBCUT SCH (09:58)
[2019-07-08] MEDS: ASPIRIN 81MG TABLET PO SCH (09:59)
[2019-07-08 13:11] LABS: BG BASE EXCESS 0.7 mmol/L (-2.0-2.0); BG CARBOXYHEMOGLOBIN 0.3 % (0.5-1.5); BG DEOXYHEMOGLOBIN 2.4 % (0.0-5.0); BG FRACTION INSPIRED OXYGEN 21; BG HCO3 ACT 23.3 mmol/L (22.0-26.0); BG METHEMOGLOBIN 0.3 % (0.0-1.5); BG OXYGEN SATURATION 97.6 % (92.0-98.5); BG PCO2 31.4 mmHg (35.0-45.0); BG PH 7.489 (7.350-7.450); BG PO2 100.9 mmHg (75.0-100.0); BG SAMPLE SITE RIGHT RADIAL; BG TOTAL HEMOGLOBIN 12.4 g/dL (12.0-18.0); BG VENT MODE ROOM AIR
[2019-07-08] MEDS: LEVOFLOXACIN 250MG PREMIX 50 ML IV SCH (13:17)
[2019-07-08] MEDS: SODIUM CHLORIDE 0.45% 1,000 ML IV SCH (16:33)
[2019-07-08 17:20] LABS: CLARITY URINE CLOUDY (CLEAR); COLOR URINE DARK YELLOW (YELLOW); KETONES URINE TRACE (NEGATIVE); LEUKOCYTE ESTERASE URINE 1+ (NEGATIVE); NITRITE URINE NEGATIVE (NEGATIVE); OCCULT BLOOD URINE 1+ (NEGATIVE); PROTEIN URINE 2+ (NEGATIVE); SPECIFIC GRAVITY URINE 1.028 (1.005-1.030)
[2019-07-08] MEDS: LORAZEPAM 2MG/ML CPJ IV PRN ×2 (19:44→19:52)
[2019-07-08] MEDS: ATORVASTATIN CALCIUM 10MG TABLET PO SCH (20:39)
[2019-07-08] MEDS: DEXT 5%/0.45% NACL 1000ML 1,000 ML IV SCH (21:42)
[2019-07-09] VITALS (34 sets, daily range): BP systolic 101–180; BP diastolic 50–134
[2019-07-09] MEDS: DILTIAZEM HCL 5MG/ML 5ML VIAL IV PRN ×2 (00:25→11:50)
[2019-07-09] MEDS: HYDRALAZINE 20MG/ML VIAL IV PRN ×2 (01:07→12:16)
[2019-07-09] MEDS: DILTIAZEM HCL 30MG TABLET PO SCH ×4 (05:45→18:00)
[2019-07-09] MEDS: BLOOD SUGAR DIAGNOSTIC STRIP TEST SCH ×4 (05:45→20:57)
[2019-07-09] MEDS: INSULIN LISPRO 100 UNITS/ML SUBCUT SCH ×4 (06:08→21:02)
[2019-07-09] MEDS: ASPIRIN 81MG TABLET PO SCH (09:00)
[2019-07-09] MEDS: ENOXAPARIN 40MG/0.4ML SYR SUBCUT SCH (09:00)
[2019-07-09] MEDS ORDERED: LORAZEPAM 2MG/ML CPJ IM SCH (09:30)
[2019-07-09] MEDS: LEVOFLOXACIN 250MG PREMIX 50 ML IV SCH (12:17)
[2019-07-09 13:41] LABS: HEPATITIS B SURFACE ANTIGEN NEGATIVE
[2019-07-09 14:11] LABS: HEPATITIS A AB IGM NEGATIVE (NEGATIVE)
[2019-07-09] MEDS: DILTIAZEM HCL 125 MG in DEXT 5% WATER 100 ML IV PRN (18:16)
[2019-07-09] MEDS: ATORVASTATIN CALCIUM 10MG TABLET PO SCH (20:26)
[2019-07-10] VITALS (75 sets, daily range): BP systolic 99–191; BP diastolic 50–107
[2019-07-10] MEDS: DEXT 5%/0.45% NACL 1000ML 1,000 ML IV SCH (00:34)
[2019-07-10] MEDS: DILTIAZEM HCL 30MG TABLET PO SCH ×4 (05:29→11:59)
[2019-07-10] MEDS: BLOOD SUGAR DIAGNOSTIC STRIP TEST SCH ×4 (05:29→21:32)
[2019-07-10] MEDS: DILTIAZEM HCL 125 MG in DEXT 5% WATER 100 ML IV PRN ×2 (05:31→21:00)
[2019-07-10] MEDS: INSULIN LISPRO 100 UNITS/ML SUBCUT SCH ×4 (05:49→20:59)
[2019-07-10] MEDS: HYDRALAZINE 20MG/ML VIAL IV PRN (05:49)
[2019-07-10 06:10] LABS: HIV SCREEN 4G Non Reactive (Non Reactive)
[2019-07-10 06:17] LABS: HEMATOCRIT. 34.6 % (36.0-48.0); MEAN CORPUSCULAR HEMOGLOBIN 30.3 pg (28.0-32.0); MEAN CORPUSCULAR VOLUME 87.2 fL (81.0-99.0); MEAN PLATELET VOLUME 9.2 fl (7.4-10.4); PLATELET 264 x1000/uL (130-400); RED BLOOD CELL COUNT 3.97 mill/uL (4.2-5.4); RED CELL DISTRIBUTION WIDTH 14.4 % (11.6-14.6)
[2019-07-10 06:32] LABS: CHLORIDE 109 mEq/L (98-107)
[2019-07-10] MEDS: ENOXAPARIN 40MG/0.4ML SYR SUBCUT SCH (08:15)
[2019-07-10] MEDS: ASPIRIN 81MG TABLET PO SCH ×2 (08:15→09:00)
[2019-07-10 09:48] LABS: PLATELET ESTIMATE NORMAL
[2019-07-10] MEDS ORDERED: POTASSIUM CHLORIDE INJ 40 MEQ in DEXT 5% WATER 250 ML IV NR (10:00)
[2019-07-10] MEDS: LEVOFLOXACIN 250MG PREMIX 50 ML IV SCH (12:05)
[2019-07-10] MEDS ORDERED: SODIUM CHLORIDE 0.9% 1000ML BAG (SEPSIS BOLUS) IV ONE (15:00)
[2019-07-10] MEDS: DILTIAZEM HCL 60MG TABLET PO SCH ×2 (17:03→23:09)
[2019-07-10] MEDS ORDERED: FUROSEMIDE 40MG/4ML VIAL IVP NR (20:15)
[2019-07-10] MEDS ORDERED: SODIUM CHLORIDE 0.9% 500 ML IV ONE (20:30)
[2019-07-10] MEDS: ATORVASTATIN CALCIUM 10MG TABLET PO SCH (20:57)
[2019-07-11] VITALS (73 sets, daily range): BP systolic 111–165; BP diastolic 36–122
[2019-07-11 06:00] LABS: BASOPHILS % 0.2 % (0.0-2.0); EOSINOPHILS % 0.9 % (0.0-5.0); HEMATOCRIT. 30.8 % (36.0-48.0); HEMOGLOBIN. 10.7 g/dL (12.0-16.0); LYMPHOCYTES % 14.2 % (20.0-50.0); MEAN CORPUSCULAR HEMOGLOBIN 30.2 pg (28.0-32.0); MEAN CORPUSCULAR VOLUME 86.9 fL (81.0-99.0); MEAN PLATELET VOLUME 8.9 fl (7.4-10.4); NEUTROPHILS % 77.7 % (40.0-76.0); PLATELET 239 x1000/uL (130-400); RED BLOOD CELL COUNT 3.54 mill/uL (4.2-5.4); RED CELL DISTRIBUTION WIDTH 14.3 % (11.6-14.6)
[2019-07-11 06:12] LABS: CHLORIDE 108 mEq/L (98-107)
[2019-07-11] MEDS: DILTIAZEM HCL 60MG TABLET PO SCH ×4 (06:23→23:14)
[2019-07-11] MEDS: DEXT 5%/0.45% NACL 1000ML 1,000 ML IV SCH ×2 (06:25→09:30)
[2019-07-11] MEDS: INSULIN LISPRO 100 UNITS/ML SUBCUT SCH ×4 (06:25→20:43)
[2019-07-11] MEDS: BLOOD SUGAR DIAGNOSTIC STRIP TEST SCH ×4 (06:34→20:43)
[2019-07-11] MEDS ORDERED: DILTIAZEM HCL 5MG/ML 5ML VIAL IV PRN (09:57)
[2019-07-11] MEDS ORDERED: POTASSIUM CHLORIDE INJ 40 MEQ in DEXT 5% WATER 250 ML IV NR (10:00)
[2019-07-11] MEDS: MEMANTINE HCL 5MG TABLET PO SCH (12:03)
[2019-07-11] MEDS: LEVOFLOXACIN 250MG PREMIX 50 ML IV SCH (12:13)
[2019-07-11] MEDS ORDERED: LEVO500T2 PO (13:43)
[2019-07-11] MEDS ORDERED: MEMA5TAB7 PO (13:43)
[2019-07-11] MEDS: ATORVASTATIN CALCIUM 10MG TABLET PO SCH (20:44)
[2019-07-12] VITALS (27 sets, daily range): BP systolic 104–165; BP diastolic 52–102
[2019-07-12 05:14] LABS: BASOPHILS % 0.5 % (0.0-2.0); EOSINOPHILS % 1.5 % (0.0-5.0); HEMATOCRIT. 34.2 % (36.0-48.0); HEMOGLOBIN. 11.9 g/dL (12.0-16.0); LYMPHOCYTES % 15.3 % (20.0-50.0); MEAN CORPUSCULAR HEMOGLOBIN 30.2 pg (28.0-32.0); MEAN CORPUSCULAR VOLUME 86.8 fL (81.0-99.0); MEAN PLATELET VOLUME 7.8 fl (7.4-10.4); MONOCYTES % 6.5 % (2.0-8.0); NEUTROPHILS % 76.2 % (40.0-76.0); PLATELET 279 x1000/uL (130-400); RED BLOOD CELL COUNT 3.94 mill/uL (4.2-5.4); RED CELL DISTRIBUTION WIDTH 14.2 % (11.6-14.6)
[2019-07-12] MEDS: DEXT 5%/0.45% NACL 1000ML 1,000 ML IV SCH (05:30)
[2019-07-12 05:49] LABS: CHLORIDE 106 mEq/L (98-107)
[2019-07-12] MEDS: BLOOD SUGAR DIAGNOSTIC STRIP TEST SCH ×2 (06:57→11:46)
[2019-07-12] MEDS: DILTIAZEM HCL 60MG TABLET PO SCH ×2 (07:03→11:47)
[2019-07-12] MEDS: INSULIN LISPRO 100 UNITS/ML SUBCUT SCH ×2 (07:03→11:56)
[2019-07-12] MEDS: MEMANTINE HCL 5MG TABLET PO SCH (08:26)
[2019-07-12] MEDS: LEVOFLOXACIN 250MG PREMIX 50 ML IV SCH (11:58)
== END 2019-07-12 14:55 | disposition hospice, home (50) | DRG 64 ==
LOC: ER 08:08 → 5WST 11:30 → EDBEDREQ 11:46 → CANRESERV 20:40 → ENRESERV 20:40 → EDBEDREQSVC 21:16 → ENRESERV 23:06 → MICUSO 07-08
PROVIDERS: ADMIT Internal Medicine; ATTEND Internal Medicine
PROC: 4A00X4Z Measurement of Central Nervous Electrical Activity, External Approach (ICD-10-PCS; principal; 2019-07-08)
PROC: 02HV33Z Insertion of Infusion Device into Superior Vena Cava, Percutaneous Approach (ICD-10-PCS; 2019-07-09)
PROC: B548ZZA Ultrasonography of Superior Vena Cava, Guidance (ICD-10-PCS; 2019-07-09)
DX: I63.9 Cerebral infarction, unspecified (principal); I50.33 Acute on chronic diastolic (congestive) heart failure; G93.40 Encephalopathy, unspecified; N39.0 Urinary tract infection, site not specified; F03.91 Unspecified dementia, unspecified severity, with behavioral disturbance; I11.0 Hypertensive heart disease with heart failure; E86.0 Dehydration; E83.52 Hypercalcemia; E78.5 Hyperlipidemia, unspecified; D72.819 Decreased white blood cell count, unspecified; E03.9 Hypothyroidism, unspecified; E11.65 Type 2 diabetes mellitus with hyperglycemia; Z51.5 Encounter for palliative care; W18.39XA Other fall on same level, initial encounter; Y93.89 Activity, other specified; Y92.89 Other specified places as the place of occurrence of the external cause; Y99.8 Other external cause status; Z78.1 Physical restraint status; Z79.899 Other long term (current) drug therapy
CPT/HCPCS: 36415; 36600; 70551; 71045; 73060; 73070; 73090; 73130; 76937; 80048; 80053; 80061; 80305; 80320; 81003; 82140; 82375; 82550; 82553; 82607; 82805; 82962; 83036; 83605; 83721; 83970; 84134; 84145; 84439; 84443; 84481; 84484; 85025; 85027; 86705; 86709; 86803; 87340; 87389; 90686; 92610; 93005; 93880; 93970; 96365; 96366; 96367; 99285; A6261; C1725; J0360; J0696; J1200; J1650; J1815; J1940; J1956; J2060; J3480; J3490; J7030; J7040; J7060; G0480